=== PATIENT | male | born 1980 ===

== ENCOUNTER 2018-07-01 20:59 | Inpatient (IN) ==
[2018-07-01] MEDS ORDERED: VANCOMYCIN INJ 2,000 MG in SODIUM CHLORIDE 0.9% 250 ML IV STA (21:30)
[2018-07-01] MEDS ORDERED: VANCOMYCIN 1,000 MG VIAL ONE (22:08)
[2018-07-01 23:11] LABS: Basophils # 0.1 10*3/uL (0.0-0.2); Basophils % 0.9 % (0.0-0.8); Eosinophils # 0.1 10*3/uL (0.0-0.87); Eosinophils % 1.5 % (0.00-10.9); Hematocrit 44.6 VOL% (42.0-52.0); Hemoglobin 15.1 GM/DL (14.0-18.0); Immature Granulocytes % 0.5 %; Immature Granulocytes Absolute 0.03 #; Lymphocytes # 2.7 10*3/uL (1.4-4.0); Lymphocytes % 41.3 % (21.2-54.2); Mean Corpuscular HGB Conc 33.9 GM/DL (32-36); Mean Corpuscular Hemoglobin 31 PG (27-34); Mean Platelet Volume 9.6 FL (9.6-12.0); Monocytes # 0.7 10*3/uL (0.11-0.8); Monocytes % 10.5 % (1.7-12.7); Neutrophils % 45.3 % (38.7-73.9); Platelet Count 220 T/CUMM (130-400); Red Blood Count 4.85 MC/CUMM (3.8-5.5); Red Cell Distribution Width 13.7 % (9.3-17.3); White Blood Count 6.6 T/CUMM (4-12)
[2018-07-01 23:20] LABS: PT Patient Result 10.8 SECS
[2018-07-01 23:40] LABS: Apearance,Urine CLEAR (Clear); Bacteria,Urine Occasional /HPF (Few); Bilirubin,Urine Negative (Negative); Blood, Urine Small mg/dL (Negative); Glucose,Urine (UA) >=500 mg/dL (Negative); Hyaline Casts,Urine 1 /LPF (0-3); Ketones,Urine Negative (Negative); Mucus,Urine Occasional /LPF (Occasional); Nitrite,Urine Negative (Negative); Protein,Urine Negative; RBC,Urine 2 /HPF (0-4); Squamous Epithelial Cell,Urine Occasional /HPF (0-10); Urine Color Yellow (Yellow); Urine Specific Gravity 1.002 (1.001-1.035); Urine Urobilinogen < 2.0 EU/DL (0.2-1.0); WBC,Urine <1 /HPF (0-6)
[2018-07-01 23:43] LABS: Albumin 3.4 G/DL (3.4-5.0); Bilirubin,Total 0.4 MG/DL (0.2-1.0); Potassium 3.7 MMOL/L (3.5-5.1); Total Protein 8.2 G/DL (6.4-8.3)
[2018-07-01 23:45] LABS: Barbiturates Screen,Urine Negative (Negative); Benzodiazepines Screen,Urine Negative (Negative); Cannabinoid Screen,Urine Negative (Negative); Opiate Screen,Urine Negative (Negative); Phencyclidine Screen,Urine Negative (Negative)
[2018-07-02 00:14] LABS: Sedimentation Rate-Westergren 32 MM/HR (0-15)
[2018-07-02] MEDS ORDERED: NICOTINE 21 MG/24 HR PATCH TRANSDERM PRN (01:40)
[2018-07-02] MEDS ORDERED: ACETAMINOPHEN 325 MG TABLET PO PRN (01:40)
[2018-07-02] MEDS ORDERED: DEXTROSE 50% 25 GM/50 ML SYRINGE IV PRN (01:40)
[2018-07-02] MEDS ORDERED: GLUCAGON 1 MG VIAL IM PRN (01:40)
[2018-07-02] MEDS ORDERED: ONDANSETRON 4 MG/2 ML VIAL IV PRN (01:40)
[2018-07-02] MEDS ORDERED: VANCOMYCIN 1,000 MG VIAL ONE (03:22)
[2018-07-02] MEDS: MORPHINE 4 MG/1 ML VIAL IV PRN ×2 (05:00→11:52)
[2018-07-02] MEDS: PIPERACILLIN/TAZOBACTAM 3,375 MG in SODIUM CHLORIDE 0.9% 100 ML IV SCH ×3 (05:01→21:50)
[2018-07-02] MEDS: SODIUM CHLORIDE 0.9% 1,000 ML IV SCH ×3 (05:01→18:50)
[2018-07-02] MEDS ORDERED: THIAMINE INJ 100 MG, FOLIC ACID INJ 1 MG, MULTIVITAMIN INJ 10 ML in SODIUM CHLORIDE 0.9... IV ONE (05:30)
[2018-07-02 06:12] LABS: Basophils # 0.1 10*3/uL (0.0-0.2); Basophils % 0.9 % (0.0-0.8); Eosinophils # 0.1 10*3/uL (0.0-0.87); Eosinophils % 2.5 % (0.00-10.9); Hematocrit 43.4 VOL% (42.0-52.0); Hemoglobin 14.6 GM/DL (14.0-18.0); Immature Granulocytes % 0.4 %; Immature Granulocytes Absolute 0.02 #; Lymphocytes # 1.8 10*3/uL (1.4-4.0); Lymphocytes % 32.6 % (21.2-54.2); Mean Corpuscular HGB Conc 33.6 GM/DL (32-36); Mean Corpuscular Hemoglobin 31 PG (27-34); Mean Corpuscular Volume 92.5 FL (87-102); Mean Platelet Volume 9.4 FL (9.6-12.0); Monocytes # 0.6 10*3/uL (0.11-0.8); Monocytes % 11.2 % (1.7-12.7); Neutrophils % 52.4 % (38.7-73.9); Platelet Count 182 T/CUMM (130-400); Red Blood Count 4.69 MC/CUMM (3.8-5.5); Red Cell Distribution Width 13.8 % (9.3-17.3); White Blood Count 5.6 T/CUMM (4-12)
[2018-07-02] MEDS: INSULIN REGULAR 100 UNIT/ML SUBCUT SCH ×3 (07:19→18:20)
[2018-07-02] MEDS: PANTOPRAZOLE 40 MG TABLET PO SCH (09:09)
[2018-07-02] MEDS: VANCOMYCIN INJ 2,000 MG in SODIUM CHLORIDE 0.9% 500 ML IV SCH ×2 (12:32→22:17)
[2018-07-02] MEDS ORDERED: LORazepam 2 MG/1 ML VIAL IV PRN (16:51)
[2018-07-02] MEDS: glyBURIDE 2.5 MG TABLET PO SCH (18:21)
[2018-07-03] MEDS: INSULIN REGULAR 100 UNIT/ML SUBCUT SCH ×3 (00:27→13:24)
[2018-07-03] MEDS: PIPERACILLIN/TAZOBACTAM 3,375 MG in SODIUM CHLORIDE 0.9% 100 ML IV SCH ×2 (05:25→13:43)
[2018-07-03] MEDS: SODIUM CHLORIDE 0.9% 1,000 ML IV SCH ×3 (07:47→10:21)
[2018-07-03] MEDS: glyBURIDE 2.5 MG TABLET PO SCH (08:38)
[2018-07-03] MEDS: PANTOPRAZOLE 40 MG TABLET PO SCH (08:38)
[2018-07-03] MEDS: VANCOMYCIN INJ 2,000 MG in SODIUM CHLORIDE 0.9% 500 ML IV SCH (10:35)
[2018-07-03 12:15] VITALS: BP 198/95
== END 2018-07-03 15:45 | disposition home or self-care (01) | DRG 639 ==
LOC: EDBD → EDUNIT# → N.ED 20:59 → N.EDINP 07-02 01:40 → SUATTDRO 07-02 01:40 → N.5E 07-02 04:02
PROVIDERS: ADMIT Internal Medicine; ATTEND Internal Medicine

== ENCOUNTER 2020-11-12 17:42 | Inpatient (IN) ==
[2020-11-12] MEDS ORDERED: PIPERACILLIN/TAZOBACTAM 3,375 MG in SODIUM CHLORIDE 0.9% 100 ML IV ONE (21:18)
[2020-11-12 21:52] LABS: Blood Urea Nitrogen 27 MG/DL (7-18); Calcium 7.3 MG/DL (8.5-10.1); Carbon Dioxide 24 MMOL/L (21-32); Glucose 373 MG/DL (74-106); Osmolality,Calculated 266.8 MOS/KG (273-304); Potassium 3.6 MMOL/L (3.5-5.1); Sodium 123 MMOL/L (136-145)
[2020-11-12 21:55] LABS: Estimated Glom Filtration Rate 0 ML/MIN
[2020-11-12] MEDS ORDERED: BISACODYL 5 MG TABLET PO PRN (22:21)
[2020-11-12] MEDS ORDERED: DEXTROSE 50% 25 GM/50 ML VIAL IV PRN (22:21)
[2020-11-12] MEDS ORDERED: ONDANSETRON 4 MG/2 ML VIAL IV PRN (22:21)
[2020-11-12] MEDS ORDERED: NICOTINE 21 MG/24 HR PATCH TRANSDERM PRN (22:21)
[2020-11-12] MEDS ORDERED: ZALEPLON 5 MG CAPSULE PO PRN (22:21)
[2020-11-12] MEDS ORDERED: ACETAMINOPHEN 325 MG TABLET PO PRN (22:21)
[2020-11-12] MEDS ORDERED: GLUCAGON 1 MG VIAL IM PRN (22:21)
[2020-11-12] MEDS ORDERED: guaiFENesin/DM ER 600-30 MG TABLET PO PRN (22:21)
[2020-11-12] MEDS ORDERED: SODIUM CHLORIDE 0.9% 2,000 ML IV ONE (22:25)
[2020-11-13 02:23] LABS: Basophils # 0.1 10*3/uL (0.0-0.2); Basophils % 0.4 % (0.0-0.8); Eosinophils # 0.1 10*3/uL (0.0-0.87); Eosinophils % 0.5 % (0.00-10.9); Hematocrit 29.5 VOL% (42.0-52.0); Hemoglobin 9.7 GM/DL (14.0-18.0); Immature Granulocytes % 2.8 %; Immature Granulocytes Absolute 0.47 #; Lymphocytes # 1.5 10*3/uL (1.4-4.0); Mean Corpuscular HGB Conc 32.9 GM/DL (32-36); Mean Corpuscular Volume 95.5 FL (87-102); Mean Platelet Volume 9.6 FL (9.6-12.0); Monocytes % 13.9 % (1.7-12.7); Neutrophils % 73.4 % (38.7-73.9); Platelet Count 288 T/CUMM (130-400); Red Blood Count 3.09 MC/CUMM (3.8-5.5); Red Cell Distribution Width 14.8 % (9.3-17.3)
[2020-11-13 02:34] LABS: INR 1.2; PT Patient Result 13.1 SECS (10.5-12.0); Partial Thromboplastin Time 32.4 SECS (23.9-33.8)
[2020-11-13 02:44] LABS: Albumin 1.1 G/DL (3.4-5.0); Bilirubin,Total 5.3 MG/DL (0.20-1.00); Calcium 7.1 MG/DL (8.5-10.1); Osmolality,Calculated 269.6 MOS/KG (273-304); Potassium 3.5 MMOL/L (3.5-5.1); Total Protein 7.5 G/DL (6.4-8.2)
[2020-11-13] MEDS: SODIUM CHLORIDE 0.9% 1,000 ML IV SCH ×2 (03:01→11:23)
[2020-11-13] MEDS ORDERED: VANCOMYCIN INJ 1,750 MG in SODIUM CHLORIDE 0.9% 500 ML IV SCH (04:00)
[2020-11-13] MEDS ORDERED: MAGNESIUM SULF RIDER 4 GM/100 ML PREMIX IV PRN (07:21)
[2020-11-13] MEDS ORDERED: MAGNESIUM SULF RIDER 2 GM/50 ML PREMIX IV PRN (07:21)
[2020-11-13] MEDS: INSULIN GLARGINE 100 UNIT/ML SUBCUT SCH ×2 (08:35→21:02)
[2020-11-13] MEDS: INSULIN LISPRO 100 UNIT/ML SUBCUT SCH ×4 (08:36→21:02)
[2020-11-13] MEDS: PANTOPRAZOLE 40 MG TABLET PO SCH (08:37)
[2020-11-13] MEDS: PIPERACILLIN/TAZOBACTAM 3,375 MG in SODIUM CHLORIDE 0.9% 100 ML IV SCH ×2 (08:37→16:59)
[2020-11-13] MEDS: HEPARIN 5,000 UNIT/1 ML VIAL SUBCUT SCH ×2 (08:37→21:03)
[2020-11-13 13:05] LABS: Barbiturates Screen,Urine Negative (Negative); Benzodiazepines Screen,Urine Negative (Negative); Cannabinoid Screen,Urine Negative (Negative); Opiate Screen,Urine Positive (Negative); Phencyclidine Screen,Urine Negative (Negative)
[2020-11-13] MEDS: VANCOMYCIN INJ 1,750 MG in SODIUM CHLORIDE 0.9% 500 ML IV SCH (16:59)
[2020-11-14] MEDS: SODIUM CHLORIDE 0.9% 1,000 ML IV SCH ×2 (03:41→21:19)
[2020-11-14] MEDS: PIPERACILLIN/TAZOBACTAM 3,375 MG in SODIUM CHLORIDE 0.9% 100 ML IV SCH ×2 (03:41→09:58)
[2020-11-14] MEDS: MORPHINE 2 MG/1 ML SYRINGE IV PRN ×4 (04:51→22:12)
[2020-11-14] MEDS: VANCOMYCIN INJ 1,750 MG in SODIUM CHLORIDE 0.9% 500 ML IV SCH ×2 (04:52→17:49)
[2020-11-14 06:29] LABS: Basophils # 0.1 10*3/uL (0.0-0.2); Basophils % 0.4 % (0.0-0.8); Eosinophils # 0.1 10*3/uL (0.0-0.87); Eosinophils % 0.7 % (0.00-10.9); Hematocrit 29.3 VOL% (42.0-52.0); Hemoglobin 9.6 GM/DL (14.0-18.0); Immature Granulocytes % 2.1 %; Immature Granulocytes Absolute 0.32 #; Lymphocytes # 1.5 10*3/uL (1.4-4.0); Lymphocytes % 9.8 % (21.2-54.2); Mean Corpuscular HGB Conc 32.8 GM/DL (32-36); Mean Corpuscular Volume 95.8 FL (87-102); Mean Platelet Volume 9.6 FL (9.6-12.0); Monocytes % 12.6 % (1.7-12.7); Neutrophils % 74.4 % (38.7-73.9); Platelet Count 285 T/CUMM (130-400); Red Blood Count 3.06 MC/CUMM (3.8-5.5); Red Cell Distribution Width 15.1 % (9.3-17.3); White Blood Count 15.3 T/CUMM (4-12)
[2020-11-14] MEDS ORDERED: fentaNYL 100 MCG/2 ML VIAL ONE (06:35)
[2020-11-14] MEDS ORDERED: LIDOCAINE 2% 5 ML VIAL ONE (06:35)
[2020-11-14] MEDS ORDERED: MIDAZOLAM 2 MG/2 ML VIAL ONE (06:35)
[2020-11-14] MEDS ORDERED: propofoL 200 MG/20 ML VIAL IV ONE ×2 (06:35→08:07)
[2020-11-14 07:01] LABS: Bilirubin,Total 4.6 MG/DL (0.20-1.00); Calcium 7.2 MG/DL (8.5-10.1); Osmolality,Calculated 269.7 MOS/KG (273-304); Potassium 3.4 MMOL/L (3.5-5.1)
[2020-11-14] MEDS ORDERED: LACTATED RINGERS 1,000 ML IV SCH (07:30)
[2020-11-14] MEDS ORDERED: SUCCINYLCHOLINE 200 MG/10 ML VIAL ONE (07:57)
[2020-11-14] MEDS ORDERED: PHENYLEPHRINE 1 MG/10 ML SYRINGE IV ONE (07:57)
[2020-11-14] MEDS ORDERED: POTASSIUM BICARB EFFERVESCENT 20 MEQ TAB.EFF PO ONE (08:00)
[2020-11-14] MEDS ORDERED: ONDANSETRON 4 MG/2 ML VIAL ONE (08:06)
[2020-11-14] MEDS ORDERED: SEVOFLURANE 1 UNIT/15 MINUTE INH ONE (08:06)
[2020-11-14] MEDS ORDERED: diphenhydrAMINE 50 MG/1 ML VIAL IV PRN (08:34)
[2020-11-14] MEDS ORDERED: MEPERIDINE 25 MG/1 ML VIAL IV PRN (08:34)
[2020-11-14] MEDS ORDERED: ONDANSETRON 4 MG/2 ML VIAL IV PRN (08:34)
[2020-11-14] MEDS ORDERED: HYDROmorphone 2 MG/1 ML VIAL IV PRN (08:34)
[2020-11-14] MEDS ORDERED: PROMETHAZINE INJ 25 MG in SODIUM CHLORIDE 0.9% 50 ML IV PRN (08:34)
[2020-11-14] MEDS: INSULIN LISPRO 100 UNIT/ML SUBCUT SCH ×4 (09:44→22:01)
[2020-11-14] MEDS: PANTOPRAZOLE 40 MG TABLET PO SCH (09:58)
[2020-11-14] MEDS: THIAMINE 100 MG TABLET PO SCH (09:58)
[2020-11-14] MEDS: FOLIC ACID 1 MG TABLET PO SCH (09:58)
[2020-11-14] MEDS: HEPARIN 5,000 UNIT/1 ML VIAL SUBCUT SCH (09:58)
[2020-11-14] MEDS: MULTIVITAMIN (CENTRUM) TABLET PO SCH (09:58)
[2020-11-14] MEDS: INSULIN GLARGINE 100 UNIT/ML SUBCUT SCH ×2 (09:59→21:59)
[2020-11-14] MEDS ORDERED: MORPHINE 2 MG/1 ML SYRINGE IV ONE (11:07)
[2020-11-14] MEDS ORDERED: SILVER NITRATE STICK 1 EACH TOP ONE (11:30)
[2020-11-14 12:27] LABS: Hematocrit 27.6 VOL% (42.0-52.0); Hemoglobin 8.9 GM/DL (14.0-18.0)
[2020-11-14 17:18] LABS: Hematocrit 24.7 VOL% (42.0-52.0)
[2020-11-14] MEDS ORDERED: SODIUM CHLORIDE 0.9% 1,000 ML IV PRN (17:41)
[2020-11-14] MEDS: CEFEPIME 1,000 MG in SODIUM CHLORIDE 0.9% 100 ML IV SCH (21:16)
[2020-11-14 23:36] LABS: Hematocrit 27.1 VOL% (42.0-52.0); Hemoglobin 8.1 GM/DL (14.0-18.0)
[2020-11-15] MEDS: CEFEPIME 1,000 MG in SODIUM CHLORIDE 0.9% 100 ML IV SCH ×4 (02:40→21:06)
[2020-11-15] MEDS: MORPHINE 2 MG/1 ML SYRINGE IV PRN ×5 (02:43→21:08)
[2020-11-15] MEDS: VANCOMYCIN INJ 1,750 MG in SODIUM CHLORIDE 0.9% 500 ML IV SCH ×2 (05:40→17:44)
[2020-11-15 06:19] LABS: Basophils # 0.1 10*3/uL (0.0-0.2); Basophils % 0.9 % (0.0-0.8); Eosinophils # 0.3 10*3/uL (0.0-0.87); Eosinophils % 3.3 % (0.00-10.9); Hematocrit 23.5 VOL% (42.0-52.0); Hemoglobin 7.6 GM/DL (14.0-18.0); Immature Granulocytes % 4.4 %; Immature Granulocytes Absolute 0.42 #; Lymphocytes # 1.7 10*3/uL (1.4-4.0); Lymphocytes % 17.6 % (21.2-54.2); Mean Corpuscular HGB Conc 32.3 GM/DL (32-36); Mean Corpuscular Volume 99.6 FL (87-102); Monocytes % 12.1 % (1.7-12.7); Neutrophils % 61.7 % (38.7-73.9); Platelet Count 266 T/CUMM (130-400); Red Blood Count 2.36 MC/CUMM (3.8-5.5); Red Cell Distribution Width 15.2 % (9.3-17.3); White Blood Count 9.5 T/CUMM (4-12)
[2020-11-15 06:48] LABS: Hypochromasia 1+; Microcytosis 1+; Platelet Estimate Adequate
[2020-11-15 06:58] LABS: Bilirubin,Total 3.3 MG/DL (0.20-1.00); Calcium 7.2 MG/DL (8.5-10.1); Osmolality,Calculated 267.8 MOS/KG (273-304); Potassium 3.4 MMOL/L (3.5-5.1); Total Protein 7.1 G/DL (6.4-8.2)
[2020-11-15] MEDS: INSULIN LISPRO 100 UNIT/ML SUBCUT SCH ×4 (08:19→22:28)
[2020-11-15] MEDS: FOLIC ACID 1 MG TABLET PO SCH (09:12)
[2020-11-15] MEDS: MULTIVITAMIN (CENTRUM) TABLET PO SCH (09:12)
[2020-11-15] MEDS: DOCUSATE SODIUM 100 MG CAPSULE PO SCH ×2 (09:12→21:06)
[2020-11-15] MEDS: POTASSIUM CHLORIDE 20 MEQ TABLET PO PRN ×3 (09:12→14:29)
[2020-11-15] MEDS: INSULIN GLARGINE 100 UNIT/ML SUBCUT SCH ×2 (09:12→22:29)
[2020-11-15] MEDS: THIAMINE 100 MG TABLET PO SCH (09:12)
[2020-11-15] MEDS: PANTOPRAZOLE 40 MG TABLET PO SCH (09:12)
[2020-11-15 09:56] LABS: Hematocrit 24.4 VOL% (42.0-52.0); Hemoglobin 7.7 GM/DL (14.0-18.0)
[2020-11-15] MEDS: SODIUM CHLORIDE 0.9% 1,000 ML IV SCH ×4 (11:28→22:31)
[2020-11-15 14:11] LABS: Hematocrit 23.8 VOL% (42.0-52.0); Hemoglobin 7.5 GM/DL (14.0-18.0)
[2020-11-15 20:02] LABS: Hematocrit 25.4 VOL% (42.0-52.0); Hemoglobin 7.9 GM/DL (14.0-18.0)
[2020-11-16] MEDS: VANCOMYCIN INJ 1,750 MG in SODIUM CHLORIDE 0.9% 500 ML IV SCH ×2 (01:05→17:06)
[2020-11-16] MEDS: CEFEPIME 1,000 MG in SODIUM CHLORIDE 0.9% 100 ML IV SCH ×4 (03:31→21:01)
[2020-11-16] MEDS: MORPHINE 2 MG/1 ML SYRINGE IV PRN ×4 (03:34→21:04)
[2020-11-16 06:03] LABS: Basophils # 0.1 10*3/uL (0.0-0.2); Basophils % 0.9 % (0.0-0.8); Eosinophils # 0.2 10*3/uL (0.0-0.87); Eosinophils % 2.5 % (0.00-10.9); Hematocrit 24.2 VOL% (42.0-52.0); Hemoglobin 7.7 GM/DL (14.0-18.0); Immature Granulocytes % 5.4 %; Immature Granulocytes Absolute 0.46 #; Lymphocytes # 1.5 10*3/uL (1.4-4.0); Lymphocytes % 18.1 % (21.2-54.2); Mean Corpuscular HGB Conc 31.8 GM/DL (32-36); Mean Corpuscular Volume 100.4 FL (87-102); Mean Platelet Volume 9.4 FL (9.6-12.0); Monocytes % 11.1 % (1.7-12.7); Platelet Count 319 T/CUMM (130-400); Red Blood Count 2.41 MC/CUMM (3.8-5.5); Red Cell Distribution Width 15.4 % (9.3-17.3); White Blood Count 8.5 T/CUMM (4-12)
[2020-11-16 06:43] LABS: Bilirubin,Total 2.6 MG/DL (0.20-1.00); Calcium 7.4 MG/DL (8.5-10.1); Osmolality,Calculated 277.8 MOS/KG (273-304); Potassium 4.2 MMOL/L (3.5-5.1); Total Protein 7.6 G/DL (6.4-8.2)
[2020-11-16 06:52] LABS: Band Neutrophils 1 % (0-10); Eosinophils 3 % (0-10); Hypochromasia 1+; Lymphocytes 12 % (20-55); Microcytosis 1+; Nucleated Red Blood Cells 1 (0-5); Platelet Estimate Adequate; Segmented Neutrophils 76 % (50-85); Total Cells Counted 100
[2020-11-16] MEDS: INSULIN LISPRO 100 UNIT/ML SUBCUT SCH ×4 (07:19→23:29)
[2020-11-16] MEDS: DOCUSATE SODIUM 100 MG CAPSULE PO SCH ×2 (08:39→21:01)
[2020-11-16] MEDS: INSULIN GLARGINE 100 UNIT/ML SUBCUT SCH ×2 (08:39→23:29)
[2020-11-16] MEDS: MULTIVITAMIN (CENTRUM) TABLET PO SCH (08:39)
[2020-11-16] MEDS: FOLIC ACID 1 MG TABLET PO SCH (08:39)
[2020-11-16] MEDS: THIAMINE 100 MG TABLET PO SCH (08:39)
[2020-11-16] MEDS: PANTOPRAZOLE 40 MG TABLET PO SCH (08:39)
[2020-11-16] MEDS: SODIUM CHLORIDE 0.9% 1,000 ML IV SCH (12:04)
[2020-11-17] MEDS: MOISTURIZING CREAM (EUCERIN) 106 GM JAR TOP PRN ×2 (01:41→16:11)
[2020-11-17] MEDS: CEFEPIME 1,000 MG in SODIUM CHLORIDE 0.9% 100 ML IV SCH ×4 (02:18→21:20)
[2020-11-17] MEDS: MORPHINE 2 MG/1 ML SYRINGE IV PRN ×2 (05:04→11:31)
[2020-11-17] MEDS: SODIUM CHLORIDE 0.9% 1,000 ML IV SCH ×3 (05:05→17:21)
[2020-11-17 05:46] LABS: Basophils # 0.1 10*3/uL (0.0-0.2); Eosinophils # 0.1 10*3/uL (0.0-0.87); Eosinophils % 1.7 % (0.00-10.9); Hematocrit 25.2 VOL% (42.0-52.0); Hemoglobin 7.7 GM/DL (14.0-18.0); Immature Granulocytes % 5.7 %; Immature Granulocytes Absolute 0.41 #; Lymphocytes # 1.4 10*3/uL (1.4-4.0); Lymphocytes % 19.9 % (21.2-54.2); Mean Corpuscular HGB Conc 30.6 GM/DL (32-36); Mean Corpuscular Volume 102.9 FL (87-102); Mean Platelet Volume 9.1 FL (9.6-12.0); Monocytes % 10.8 % (1.7-12.7); NRBC # 0.03 10*3/uL; Neutrophils % 60.9 % (38.7-73.9); Platelet Count 330 T/CUMM (130-400); Red Blood Count 2.45 MC/CUMM (3.8-5.5); White Blood Count 7.2 T/CUMM (4-12)
[2020-11-17 06:12] LABS: Band Neutrophils 4 % (0-10); Eosinophils 1 % (0-10); Hypochromasia 1+; Lymphocytes 12 % (20-55); Nucleated Red Blood Cells 1 (0-5); Platelet Estimate Normal; Segmented Neutrophils 77 % (50-85); Total Cells Counted 100
[2020-11-17 06:19] LABS: Albumin 1.2 G/DL (3.4-5.0); Bilirubin,Total 2.4 MG/DL (0.20-1.00); Calcium 7.6 MG/DL (8.5-10.1); Osmolality,Calculated 285.4 MOS/KG (273-304); Potassium 4.4 MMOL/L (3.5-5.1)
[2020-11-17] MEDS ORDERED: SEVOFLURANE 1 UNIT/15 MINUTE INH ONE (07:11)
[2020-11-17] MEDS ORDERED: propofoL 200 MG/20 ML VIAL IV ONE (07:11)
[2020-11-17] MEDS ORDERED: ONDANSETRON 4 MG/2 ML VIAL ONE (07:11)
[2020-11-17] MEDS ORDERED: LIDOCAINE 2% 5 ML VIAL ONE (07:11)
[2020-11-17] MEDS ORDERED: MIDAZOLAM 2 MG/2 ML VIAL ONE (07:11)
[2020-11-17] MEDS ORDERED: fentaNYL 100 MCG/2 ML VIAL ONE ×2 (07:11→08:22)
[2020-11-17] MEDS ORDERED: ROCURONIUM 50 MG/5 ML VIAL IV ONE (07:21)
[2020-11-17] MEDS ORDERED: SUCCINYLCHOLINE 200 MG/10 ML VIAL ONE (07:29)
[2020-11-17] MEDS ORDERED: LACTATED RINGERS 1,000 ML IV SCH (08:00)
[2020-11-17] MEDS ORDERED: PHENYLEPHRINE 1 MG/10 ML SYRINGE IV ONE ×2 (08:01→08:54)
[2020-11-17] MEDS ORDERED: HYDROmorphone 2 MG/1 ML VIAL ONE (08:52)
[2020-11-17] MEDS ORDERED: GLYCOPYRROLATE 0.4 MG/2 ML VIAL ONE (09:02)
[2020-11-17] MEDS: HYDROmorphone 2 MG/1 ML VIAL IV PRN ×5 (09:35→21:14)
[2020-11-17] MEDS ORDERED: ONDANSETRON 4 MG/2 ML VIAL IV PRN (09:40)
[2020-11-17] MEDS ORDERED: GLUCAGON 1 MG VIAL IM PRN (10:38)
[2020-11-17] MEDS ORDERED: DEXTROSE 50% 25 GM/50 ML VIAL IV PRN (10:38)
[2020-11-17] MEDS: INSULIN LISPRO 100 UNIT/ML SUBCUT SCH ×4 (11:07→21:12)
[2020-11-17] MEDS: DOCUSATE SODIUM 100 MG CAPSULE PO SCH ×2 (11:31→21:14)
[2020-11-17] MEDS: THIAMINE 100 MG TABLET PO SCH (11:31)
[2020-11-17] MEDS: VANCOMYCIN INJ 1,750 MG in SODIUM CHLORIDE 0.9% 500 ML IV SCH (11:31)
[2020-11-17] MEDS: PANTOPRAZOLE 40 MG TABLET PO SCH (11:31)
[2020-11-17] MEDS: MULTIVITAMIN (CENTRUM) TABLET PO SCH (11:31)
[2020-11-17] MEDS: FOLIC ACID 1 MG TABLET PO SCH (11:31)
[2020-11-17] MEDS: INSULIN GLARGINE 100 UNIT/ML SUBCUT SCH ×2 (11:57→21:12)
[2020-11-17] MEDS ORDERED: ALBUTEROL/IPRATROPIUM 3 ML NEB RESP TX PRN (12:01)
[2020-11-17] MEDS ORDERED: HYDROmorphone 2 MG/1 ML VIAL IV PRN (12:01)
[2020-11-17] MEDS: diphenhydrAMINE CAP 25 MG CAPSULE PO PRN (16:11)
[2020-11-18] MEDS: SODIUM CHLORIDE 0.9% 1,000 ML IV SCH ×2 (00:07→12:42)
[2020-11-18] MEDS: hydrALAZINE 20 MG/1 ML VIAL IV PRN (00:13)
[2020-11-18] MEDS: HYDROmorphone 2 MG/1 ML VIAL IV PRN ×4 (02:11→19:58)
[2020-11-18] MEDS: CEFEPIME 1,000 MG in SODIUM CHLORIDE 0.9% 100 ML IV SCH ×4 (02:12→20:00)
[2020-11-18 06:47] LABS: Basophils # 0.1 10*3/uL (0.0-0.2); Basophils % 0.8 % (0.0-0.8); Eosinophils # 0.1 10*3/uL (0.0-0.87); Eosinophils % 1.1 % (0.00-10.9); Hematocrit 24.6 VOL% (42.0-52.0); Hemoglobin 7.6 GM/DL (14.0-18.0); Immature Granulocytes % 2.7 %; Immature Granulocytes Absolute 0.28 #; Lymphocytes # 1.6 10*3/uL (1.4-4.0); Lymphocytes % 15.1 % (21.2-54.2); Mean Corpuscular HGB Conc 30.9 GM/DL (32-36); Mean Corpuscular Volume 103.8 FL (87-102); Monocytes % 10.5 % (1.7-12.7); NRBC # 0.03 10*3/uL; Neutrophils % 69.8 % (38.7-73.9); Platelet Count 343 T/CUMM (130-400); Red Blood Count 2.37 MC/CUMM (3.8-5.5); Red Cell Distribution Width 16.1 % (9.3-17.3); White Blood Count 10.5 T/CUMM (4-12)
[2020-11-18 07:10] LABS: Calcium 7.4 MG/DL (8.5-10.1); Osmolality,Calculated 262.7 MOS/KG (273-304); Potassium 3.9 MMOL/L (3.5-5.1)
[2020-11-18] MEDS: INSULIN LISPRO 100 UNIT/ML SUBCUT SCH ×4 (07:37→22:10)
[2020-11-18 08:17] LABS: Eosinophils 3 % (0-10); Hypochromasia 1+; Lymphocytes 17 % (20-55); Microcytosis 1+; Platelet Estimate Normal; Segmented Neutrophils 64 % (50-85); Total Cells Counted 100
[2020-11-18] MEDS: DOCUSATE SODIUM 100 MG CAPSULE PO SCH ×2 (09:04→21:45)
[2020-11-18] MEDS: PANTOPRAZOLE 40 MG TABLET PO SCH (09:04)
[2020-11-18] MEDS: INSULIN GLARGINE 100 UNIT/ML SUBCUT SCH ×2 (09:04→21:46)
[2020-11-18] MEDS: FOLIC ACID 1 MG TABLET PO SCH (09:04)
[2020-11-18] MEDS: MULTIVITAMIN (CENTRUM) TABLET PO SCH (09:04)
[2020-11-18] MEDS: THIAMINE 100 MG TABLET PO SCH (09:04)
[2020-11-18] MEDS ORDERED: MAGNESIUM HYDROXIDE SUSP 30 ML UDCUP PO PRN (11:28)
[2020-11-19] MEDS: hydrALAZINE 20 MG/1 ML VIAL IV PRN (00:09)
[2020-11-19] MEDS: HYDROmorphone 2 MG/1 ML VIAL IV PRN ×2 (00:19→22:09)
[2020-11-19] MEDS: CEFEPIME 1,000 MG in SODIUM CHLORIDE 0.9% 100 ML IV SCH ×4 (02:20→22:07)
[2020-11-19] MEDS: INSULIN LISPRO 100 UNIT/ML SUBCUT SCH ×4 (09:42→22:31)
[2020-11-19] MEDS: THIAMINE 100 MG TABLET PO SCH (10:12)
[2020-11-19] MEDS: DOCUSATE SODIUM 100 MG CAPSULE PO SCH ×2 (10:12→22:06)
[2020-11-19] MEDS: FOLIC ACID 1 MG TABLET PO SCH (10:12)
[2020-11-19] MEDS: diphenhydrAMINE CAP 25 MG CAPSULE PO PRN (10:12)
[2020-11-19] MEDS: MULTIVITAMIN (CENTRUM) TABLET PO SCH (10:12)
[2020-11-19] MEDS: INSULIN GLARGINE 100 UNIT/ML SUBCUT SCH ×2 (10:13→22:08)
[2020-11-19] MEDS: PANTOPRAZOLE 40 MG TABLET PO SCH (10:13)
[2020-11-19] MEDS: HEPARIN 5,000 UNIT/1 ML VIAL SUBCUT SCH ×2 (13:22→22:07)
[2020-11-20] MEDS: CEFEPIME 1,000 MG in SODIUM CHLORIDE 0.9% 100 ML IV SCH ×2 (02:50→10:36)
[2020-11-20] MEDS: diphenhydrAMINE CAP 25 MG CAPSULE PO PRN (03:25)
[2020-11-20] MEDS: HYDROmorphone 2 MG/1 ML VIAL IV PRN ×2 (04:26→09:13)
[2020-11-20 06:04] LABS: Basophils # 0.1 10*3/uL (0.0-0.2); Basophils % 0.7 % (0.0-0.8); Eosinophils # 0.2 10*3/uL (0.0-0.87); Eosinophils % 2.7 % (0.00-10.9); Hematocrit 21.6 VOL% (42.0-52.0); Hemoglobin 7.1 GM/DL (14.0-18.0); Immature Granulocytes % 1.9 %; Immature Granulocytes Absolute 0.16 #; Lymphocytes # 1.3 10*3/uL (1.4-4.0); Lymphocytes % 15.2 % (21.2-54.2); Mean Corpuscular HGB Conc 32.9 GM/DL (32-36); Neutrophils % 68.5 % (38.7-73.9); Platelet Count 282 T/CUMM (130-400); Red Blood Count 2.16 MC/CUMM (3.8-5.5); Red Cell Distribution Width 15.9 % (9.3-17.3); White Blood Count 8.5 T/CUMM (4-12)
[2020-11-20 07:59] LABS: % Iron Saturation 24.7 % (18-50)
[2020-11-20 08:06] LABS: Folate 11.99 NG/ML (5.38-24.0)
[2020-11-20] MEDS: FOLIC ACID 1 MG TABLET PO SCH (09:12)
[2020-11-20] MEDS: MULTIVITAMIN (CENTRUM) TABLET PO SCH (09:12)
[2020-11-20] MEDS: HEPARIN 5,000 UNIT/1 ML VIAL SUBCUT SCH (09:12)
[2020-11-20] MEDS: DOCUSATE SODIUM 100 MG CAPSULE PO SCH (09:12)
[2020-11-20] MEDS: PANTOPRAZOLE 40 MG TABLET PO SCH (09:12)
[2020-11-20] MEDS: INSULIN GLARGINE 100 UNIT/ML SUBCUT SCH (09:13)
[2020-11-20] MEDS: THIAMINE 100 MG TABLET PO SCH (09:13)
[2020-11-20] MEDS: INSULIN LISPRO 100 UNIT/ML SUBCUT SCH ×3 (09:13→16:08)
[2020-11-20 12:42] VITALS: BP 135/74
[2020-11-20] MEDS ORDERED: FERROUS SULFATE 325 MG TABLET PO SCH (17:00)
== END 2020-11-20 16:30 | DRG 239 ==
LOC: SUATTDRO 20:42 → N.3E 20:42
PROVIDERS: ADMIT Internal Medicine; ATTEND Internal Medicine

== ENCOUNTER 2020-12-16 05:35 | Inpatient (IN) ==
[2020-12-16] MEDS ORDERED: MEROPENEM 1,000 MG in SODIUM CHLORIDE 0.9% 100 ML IV STA (06:45)
[2020-12-16 07:04] LABS: Basophils # 0.1 10*3/uL (0.0-0.2); Eosinophils # 0.3 10*3/uL (0.0-0.87); Eosinophils % 4.5 % (0.00-10.9); Hematocrit 26.9 VOL% (42.0-52.0); Immature Granulocytes % 0.4 %; Immature Granulocytes Absolute 0.03 #; Lymphocytes # 1.3 10*3/uL (1.4-4.0); Lymphocytes % 19.8 % (21.2-54.2); Mean Corpuscular HGB Conc 33.5 GM/DL (32-36); Mean Corpuscular Volume 92.1 FL (87-102); Mean Platelet Volume 9.3 FL (9.6-12.0); Monocytes % 13.5 % (1.7-12.7); Neutrophils % 60.8 % (38.7-73.9); Platelet Count 265 T/CUMM (130-400); Red Blood Count 2.92 MC/CUMM (3.8-5.5); Red Cell Distribution Width 12.8 % (9.3-17.3); White Blood Count 6.7 T/CUMM (4-12)
[2020-12-16 07:25] LABS: Band Neutrophils 1 % (0-10); Eosinophils 4 % (0-10); Lymphocytes 15 % (20-55); Microcytosis 1+; Platelet Estimate Normal; Segmented Neutrophils 70 % (50-85); Total Cells Counted 100
[2020-12-16 07:27] LABS: Albumin 1.6 G/DL (3.4-5.0); Bilirubin,Total 0.6 MG/DL (0.20-1.00); Osmolality,Calculated 280.5 MOS/KG (273-304); Potassium 3.8 MMOL/L (3.5-5.1); Total Protein 8.3 G/DL (6.4-8.2)
[2020-12-16] MEDS ORDERED: MEROPENEM 1,000 MG VIAL ONE (07:27)
[2020-12-16] MEDS ORDERED: MORPHINE 2 MG/1 ML SYRINGE IV PRN ×2 (08:09→09:46)
[2020-12-16] MEDS ORDERED: ALUMINUM/MAGNES/SIMETH MAX STR 30 ML UDCUP PO PRN (08:09)
[2020-12-16] MEDS ORDERED: LACTULOSE 20 GM/30 ML UDCUP PO PRN (08:09)
[2020-12-16] MEDS ORDERED: DOCUSATE SODIUM 100 MG CAPSULE PO PRN (08:09)
[2020-12-16] MEDS ORDERED: hydrALAZINE 20 MG/1 ML VIAL IV PRN (08:09)
[2020-12-16] MEDS ORDERED: ALBUTEROL 2.5 MG/3 ML NEB RESP TX PRN (08:09)
[2020-12-16] MEDS ORDERED: GLUCAGON 1 MG VIAL IM PRN ×2 (08:09→13:35)
[2020-12-16] MEDS ORDERED: DEXTROSE 50% 25 GM/50 ML VIAL IV PRN ×2 (08:09→13:35)
[2020-12-16] MEDS ORDERED: ACETAMINOPHEN 325 MG TABLET PO PRN (08:09)
[2020-12-16] MEDS ORDERED: ONDANSETRON 4 MG/2 ML VIAL IV PRN (08:09)
[2020-12-16] MEDS: LACTATED RINGERS 1,000 ML IV SCH ×2 (11:25→21:06)
[2020-12-16] MEDS ORDERED: fentaNYL 100 MCG/2 ML VIAL ONE (11:58)
[2020-12-16] MEDS ORDERED: MIDAZOLAM 2 MG/2 ML VIAL ONE (11:58)
[2020-12-16] MEDS ORDERED: ETOMIDATE 40 MG/20 ML VIAL IV ONE (12:25)
[2020-12-16] MEDS ORDERED: propofoL 200 MG/20 ML VIAL IV ONE (12:25)
[2020-12-16] MEDS ORDERED: SEVOFLURANE 1 UNIT/15 MINUTE INH ONE (12:25)
[2020-12-16] MEDS ORDERED: LIDOCAINE 2% 5 ML VIAL ONE (12:25)
[2020-12-16] MEDS ORDERED: ONDANSETRON 4 MG/2 ML VIAL ONE (12:25)
[2020-12-16] MEDS: PANTOPRAZOLE 40 MG TABLET PO SCH (13:37)
[2020-12-16] MEDS: INSULIN LISPRO 100 UNIT/ML SUBCUT SCH ×3 (13:37→22:47)
[2020-12-16] MEDS: MORPHINE 2 MG/1 ML SYRINGE IV PRN ×2 (14:56→21:06)
[2020-12-16] MEDS ORDERED: LEVOFLOXACIN INJ 750 MG/150 ML PREMIX IV SCH (15:00)
[2020-12-16] MEDS ORDERED: MAGNESIUM SULF RIDER 2 GM/50 ML PREMIX IV ONE (16:30)
[2020-12-16] MEDS: FERROUS SULFATE 325 MG TABLET PO SCH (16:41)
[2020-12-16 17:03] LABS: % Iron Saturation 26.3 % (18-50)
[2020-12-16 17:55] LABS: Folate 13.52 NG/ML (5.38-24.0)
[2020-12-16] MEDS ORDERED: INSULIN GLARGINE 100 UNIT/ML SUBCUT SCH (21:00)
[2020-12-16] MEDS ORDERED: ROSUVASTATIN 10 MG TABLET PO SCH (21:00)
[2020-12-17] MEDS: LACTATED RINGERS 1,000 ML IV SCH (04:20)
[2020-12-17 05:05] LABS: Basophils # 0.1 10*3/uL (0.0-0.2); Eosinophils # 0.3 10*3/uL (0.0-0.87); Eosinophils % 3.9 % (0.00-10.9); Hematocrit 26.4 VOL% (42.0-52.0); Hemoglobin 8.7 GM/DL (14.0-18.0); Immature Granulocytes % 0.4 %; Immature Granulocytes Absolute 0.03 #; Lymphocytes # 1.5 10*3/uL (1.4-4.0); Lymphocytes % 20.4 % (21.2-54.2); Mean Corpuscular Volume 92.6 FL (87-102); Mean Platelet Volume 9.1 FL (9.6-12.0); Monocytes % 12.1 % (1.7-12.7); Neutrophils % 62.2 % (38.7-73.9); Platelet Count 270 T/CUMM (130-400); Red Blood Count 2.85 MC/CUMM (3.8-5.5); Red Cell Distribution Width 12.6 % (9.3-17.3); White Blood Count 7.3 T/CUMM (4-12)
[2020-12-17 05:23] LABS: Calcium 7.7 MG/DL (8.5-10.1); Osmolality,Calculated 269.4 MOS/KG (273-304); Potassium 3.7 MMOL/L (3.5-5.1)
[2020-12-17 05:27] LABS: Risk Ratio 3.75; VLDL Cholesterol 21.8 MG/DL
[2020-12-17] MEDS ORDERED: ASPIRIN EC 81 MG TABLET PO SCH (09:00)
[2020-12-17] MEDS ORDERED: amLODIPine 2.5 MG TABLET PO SCH (09:00)
[2020-12-17] MEDS ORDERED: FOLIC ACID 1 MG TABLET PO SCH (09:00)
[2020-12-17] MEDS ORDERED: CETIRIZINE 10 MG TABLET PO SCH (09:00)
[2020-12-17] MEDS: INSULIN LISPRO 100 UNIT/ML SUBCUT SCH ×2 (09:08→12:10)
[2020-12-17] MEDS: FERROUS SULFATE 325 MG TABLET PO SCH ×2 (09:09→12:10)
[2020-12-17] MEDS: PANTOPRAZOLE 40 MG TABLET PO SCH (09:09)
[2020-12-17] MEDS ORDERED: SODIUM HYPOCHLORITE 0.25% IRRIG 473 ML BOTTLE TOP SCH (10:30)
[2020-12-17 11:16] VITALS: BP 129/65
[2020-12-17] MEDS ORDERED: NYSTATIN CREAM 15 GM TUBE TOP SCH (13:00)
[2020-12-17] MEDS ORDERED: NYSTATIN OINT 15 GM TUBE TOP SCH (13:00)
== END 2020-12-17 15:00 | disposition home or self-care (01) | DRG 501 ==
LOC: EDBD → EDUNIT# → N.ED 05:35 → N.EDINP 07:23 → N.3E 11:20
PROVIDERS: ADMIT Internal Medicine; ATTEND Internal Medicine

== ENCOUNTER 2022-05-07 13:35 | Inpatient (IN) ==
[2022-05-07] MEDS ORDERED: SODIUM CHLORIDE 0.9% 1,000 ML IV STA (14:17)
[2022-05-07 14:50] LABS: Basophils # 0.1 10*3/uL (0.0-0.2); Basophils % 0.6 % (0.0-0.8); Eosinophils # 0.1 10*3/uL (0.0-0.87); Eosinophils % 0.9 % (0.00-10.9); Hematocrit 36.1 VOL% (42.0-52.0); Hemoglobin 12.9 GM/DL (14.0-18.0); Immature Granulocytes % 0.4 %; Immature Granulocytes Absolute 0.05 #; Lymphocytes # 1.4 10*3/uL (1.4-4.0); Lymphocytes % 12.3 % (21.2-54.2); Mean Corpuscular HGB Conc 35.7 GM/DL (32-36); Mean Corpuscular Volume 85.7 FL (87-102); Mean Platelet Volume 9.3 FL (9.6-12.0); Monocytes # 1.3 10*3/uL (0.11-0.8); Monocytes % 10.8 % (1.7-12.7); Platelet Count 320 T/CUMM (130-400); Red Blood Count 4.21 MC/CUMM (3.8-5.5); Red Cell Distribution Width 12.7 % (9.3-17.3); White Blood Count 11.59 T/CUMM (4-12)
[2022-05-07 15:00] LABS: PT Patient Result 11.1 SECS (10.1-12.1); Partial Thromboplastin Time 29.2 SECS (23.7-32.9)
[2022-05-07 15:09] LABS: Albumin 1.8 G/DL (3.4-5.0); Calcium 8.6 MG/DL (8.5-10.1); Osmolality,Calculated 279.8 MOS/KG (273-304); Potassium 4.2 MMOL/L (3.5-5.1); Total Protein 8.4 G/DL (6.4-8.2)
[2022-05-07 16:10] LABS: Hyaline Casts,Urine 3 /LPF (0-3); Mucus,Urine Occasional /LPF (Occasional); RBC,Urine 1 /HPF (0-4); Squamous Epithelial Cell,Urine Occasional /HPF (0-10)
[2022-05-07 16:14] LABS: Urine Color Dark yellow (Yellow)
[2022-05-07 16:15] LABS: Bilirubin,Urine Moderate mg/dL (Negative); Blood, Urine Small mg/dL (Negative); Glucose,Urine (UA) 500 mg/dL (Negative); Ketones,Urine Negative (Negative); Nitrite,Urine Negative (Negative); Protein,Urine >=300 mg/dL (Negative); Urine Appearance Clear (Clear); Urine Specific Gravity 1.025 (1.001-1.035); Urine Urobilinogen >= 8.0 eU/dL (<2.0); Urine pH 5.5 (4.5-8.0)
[2022-05-07] MEDS ORDERED: KETOROLAC 30 MG/1 ML VIAL IV STA (16:28)
[2022-05-07] MEDS ORDERED: ONDANSETRON 4 MG/2 ML VIAL IV STA (16:29)
[2022-05-07] MEDS ORDERED: PIPERACILLIN/TAZOBACTAM 3,375 MG in SODIUM CHLORIDE 0.9% 100 ML IV STA (16:31)
[2022-05-07] MEDS ORDERED: CLINDAMYCIN INJ 900 MG/50 ML PREMIX IV STA (16:31)
[2022-05-07] MEDS ORDERED: VANCOMYCIN INJ 1,750 MG in SODIUM CHLORIDE 0.9% 250 ML IV STA (16:31)
[2022-05-07] MEDS ORDERED: PIPERACILLIN/TAZOBACTAM 3,375 MG VIAL IV ONE (17:12)
[2022-05-07] MEDS ORDERED: DOCUSATE SODIUM 100 MG CAPSULE PO PRN (17:22)
[2022-05-07] MEDS ORDERED: ZALEPLON 5 MG CAPSULE PO PRN (17:22)
[2022-05-07] MEDS ORDERED: ACETAMINOPHEN 325 MG TABLET PO PRN (17:22)
[2022-05-07] MEDS ORDERED: GLUCAGON 1 MG VIAL IM PRN (17:22)
[2022-05-07] MEDS ORDERED: ONDANSETRON 4 MG/2 ML VIAL IV PRN (17:22)
[2022-05-07] MEDS ORDERED: BISACODYL 5 MG TABLET PO PRN (17:22)
[2022-05-07] MEDS ORDERED: DEXTROSE 10% 250 ML BAG IV PRN (18:08)
[2022-05-07] MEDS: INSULIN GLARGINE 100 UNIT/ML SUBCUT SCH (21:59)
[2022-05-07] MEDS: INSULIN LISPRO 100 UNIT/ML SUBCUT SCH (22:00)
[2022-05-07] MEDS: ENOXAPARIN 40 MG/0.4 ML SYRINGE SUBCUT SCH (22:00)
[2022-05-08] MEDS: PIPERACILLIN/TAZOBACTAM 3,375 MG in SODIUM CHLORIDE 0.9% 100 ML IV SCH ×3 (00:20→17:03)
[2022-05-08] MEDS: VANCOMYCIN INJ 1,750 MG in SODIUM CHLORIDE 0.9% 500 ML IV SCH ×2 (05:56→17:03)
[2022-05-08 06:06] LABS: Basophils # 0.1 10*3/uL (0.0-0.2); Basophils % 0.8 % (0.0-0.8); Eosinophils # 0.3 10*3/uL (0.0-0.87); Eosinophils % 2.8 % (0.00-10.9); Hematocrit 37.7 VOL% (42.0-52.0); Hemoglobin 13.1 GM/DL (14.0-18.0); Immature Granulocytes % 0.7 %; Immature Granulocytes Absolute 0.06 #; Lymphocytes # 1.4 10*3/uL (1.4-4.0); Lymphocytes % 15.8 % (21.2-54.2); Mean Corpuscular HGB Conc 34.7 GM/DL (32-36); Mean Corpuscular Volume 88.9 FL (87-102); Mean Platelet Volume 9.8 FL (9.6-12.0); Monocytes # 1.1 10*3/uL (0.11-0.8); Neutrophils % 67.9 % (38.7-73.9); Platelet Count 275 T/CUMM (130-400); Red Blood Count 4.24 MC/CUMM (3.8-5.5); White Blood Count 9.13 T/CUMM (4-12)
[2022-05-08 06:15] LABS: Calcium 8.2 MG/DL (8.5-10.1); Osmolality,Calculated 276.4 MOS/KG (273-304)
[2022-05-08 06:25] LABS: Risk Ratio 5.37; VLDL Cholesterol 33.8 MG/DL
[2022-05-08] MEDS: lisinopriL 20 MG TABLET PO SCH (08:36)
[2022-05-08] MEDS: PANTOPRAZOLE 40 MG TABLET PO SCH (08:36)
[2022-05-08] MEDS: ROSUVASTATIN 10 MG TABLET PO SCH (08:36)
[2022-05-08] MEDS: amLODIPine 2.5 MG TABLET PO SCH (08:36)
[2022-05-08] MEDS: ASPIRIN EC 81 MG TABLET PO SCH (08:36)
[2022-05-08] MEDS: INSULIN LISPRO 100 UNIT/ML SUBCUT SCH ×4 (08:37→22:19)
[2022-05-08] MEDS ORDERED: LIDOCAINE 2% 5 ML VIAL ONE (11:02)
[2022-05-08] MEDS ORDERED: fentaNYL 100 MCG/2 ML VIAL ONE (11:02)
[2022-05-08] MEDS ORDERED: MIDAZOLAM 2 MG/2 ML VIAL ONE (11:02)
[2022-05-08] MEDS ORDERED: propofoL 200 MG/20 ML VIAL IV ONE (11:02)
[2022-05-08] MEDS ORDERED: ROPIVACAINE 0.5% 30 ML VIAL ONE (11:13)
[2022-05-08] MEDS ORDERED: ceFAZolin 1,000 MG VIAL ONE (11:18)
[2022-05-08] MEDS ORDERED: KETAMINE 500 MG/10 ML VIAL ONE (11:22)
[2022-05-08] MEDS ORDERED: LACTATED RINGERS 1,000 ML IV ONE (11:36)
[2022-05-08] MEDS ORDERED: HYDROmorphone 1 MG/1 ML SYRINGE IV PRN (11:41)
[2022-05-08] MEDS ORDERED: ONDANSETRON 4 MG/2 ML VIAL IV PRN (11:41)
[2022-05-08] MEDS: MORPHINE 2 MG/1 ML SYRINGE IV PRN (13:03)
[2022-05-08] MEDS: ENOXAPARIN 40 MG/0.4 ML SYRINGE SUBCUT SCH (20:26)
[2022-05-08] MEDS: INSULIN GLARGINE 100 UNIT/ML SUBCUT SCH (22:20)
[2022-05-09] MEDS: PIPERACILLIN/TAZOBACTAM 3,375 MG in SODIUM CHLORIDE 0.9% 100 ML IV SCH ×3 (00:19→17:11)
[2022-05-09 06:13] LABS: Basophils # 0.1 10*3/uL (0.0-0.2); Basophils % 0.6 % (0.0-0.8); Eosinophils # 0.3 10*3/uL (0.0-0.87); Eosinophils % 2.9 % (0.00-10.9); Hematocrit 32.3 VOL% (42.0-52.0); Hemoglobin 11.5 GM/DL (14.0-18.0); Immature Granulocytes % 0.5 %; Immature Granulocytes Absolute 0.04 #; Lymphocytes # 1.4 10*3/uL (1.4-4.0); Lymphocytes % 15.6 % (21.2-54.2); Mean Corpuscular HGB Conc 35.6 GM/DL (32-36); Mean Corpuscular Volume 87.8 FL (87-102); Mean Platelet Volume 9.6 FL (9.6-12.0); Monocytes # 1.1 10*3/uL (0.11-0.8); Monocytes % 12.8 % (1.7-12.7); Neutrophils % 67.6 % (38.7-73.9); Platelet Count 281 T/CUMM (130-400); Red Blood Count 3.68 MC/CUMM (3.8-5.5); Red Cell Distribution Width 12.7 % (9.3-17.3); White Blood Count 8.68 T/CUMM (4-12)
[2022-05-09 06:30] LABS: Calcium 7.5 MG/DL (8.5-10.1); Osmolality,Calculated 274.5 MOS/KG (273-304)
[2022-05-09] MEDS: VANCOMYCIN INJ 1,750 MG in SODIUM CHLORIDE 0.9% 500 ML IV SCH ×2 (06:32→17:11)
[2022-05-09] MEDS: INSULIN LISPRO 100 UNIT/ML SUBCUT SCH ×4 (07:38→21:20)
[2022-05-09] MEDS: MORPHINE 2 MG/1 ML SYRINGE IV PRN ×2 (07:45→13:30)
[2022-05-09] MEDS ORDERED: MOISTURIZING CREAM (EUCERIN) 106 GM JAR TOP PRN (08:27)
[2022-05-09] MEDS: ASPIRIN EC 81 MG TABLET PO SCH (09:14)
[2022-05-09] MEDS: lisinopriL 20 MG TABLET PO SCH (09:15)
[2022-05-09] MEDS: ROSUVASTATIN 10 MG TABLET PO SCH (09:15)
[2022-05-09] MEDS: PANTOPRAZOLE 40 MG TABLET PO SCH (09:15)
[2022-05-09] MEDS: amLODIPine 2.5 MG TABLET PO SCH (09:15)
[2022-05-09] MEDS: INSULIN GLARGINE 100 UNIT/ML SUBCUT SCH ×2 (10:03→21:14)
[2022-05-09] MEDS: ENOXAPARIN 40 MG/0.4 ML SYRINGE SUBCUT SCH (21:14)
[2022-05-10] MEDS: PIPERACILLIN/TAZOBACTAM 3,375 MG in SODIUM CHLORIDE 0.9% 100 ML IV SCH ×2 (02:07→10:15)
[2022-05-10] MEDS ORDERED: VANCOMYCIN INJ 2,000 MG in SODIUM CHLORIDE 0.9% 500 ML IV SCH (04:00)
[2022-05-10 05:57] LABS: Basophils % 0.6 % (0.0-0.8); Eosinophils # 0.3 10*3/uL (0.0-0.87); Eosinophils % 4.3 % (0.00-10.9); Hematocrit 33.7 VOL% (42.0-52.0); Hemoglobin 11.5 GM/DL (14.0-18.0); Immature Granulocytes % 0.6 %; Immature Granulocytes Absolute 0.04 #; Lymphocytes # 1.2 10*3/uL (1.4-4.0); Lymphocytes % 17.9 % (21.2-54.2); Mean Corpuscular HGB Conc 34.1 GM/DL (32-36); Mean Corpuscular Volume 88.9 FL (87-102); Mean Platelet Volume 9.4 FL (9.6-12.0); Monocytes # 0.9 10*3/uL (0.11-0.8); Monocytes % 12.9 % (1.7-12.7); Neutrophils % 63.7 % (38.7-73.9); Platelet Count 269 T/CUMM (130-400); Red Blood Count 3.79 MC/CUMM (3.8-5.5); Red Cell Distribution Width 12.5 % (9.3-17.3); White Blood Count 6.76 T/CUMM (4-12)
[2022-05-10 06:13] LABS: Calcium 7.9 MG/DL (8.5-10.1); Osmolality,Calculated 274.5 MOS/KG (273-304); Potassium 4.2 MMOL/L (3.5-5.1)
[2022-05-10] MEDS: INSULIN GLARGINE 100 UNIT/ML SUBCUT SCH (10:15)
[2022-05-10] MEDS: amLODIPine 2.5 MG TABLET PO SCH (10:15)
[2022-05-10] MEDS: INSULIN LISPRO 100 UNIT/ML SUBCUT SCH ×4 (10:15→21:53)
[2022-05-10] MEDS: PANTOPRAZOLE 40 MG TABLET PO SCH (10:15)
[2022-05-10] MEDS: ROSUVASTATIN 10 MG TABLET PO SCH (10:15)
[2022-05-10] MEDS: ASPIRIN EC 81 MG TABLET PO SCH (10:20)
[2022-05-10] MEDS: lisinopriL 20 MG TABLET PO SCH (10:55)
[2022-05-10] MEDS: MORPHINE 2 MG/1 ML SYRINGE IV PRN ×2 (15:48→22:05)
[2022-05-10] MEDS ORDERED: INSULIN GLARGINE 100 UNIT/ML SUBCUT SCH (21:00)
[2022-05-10] MEDS: ENOXAPARIN 40 MG/0.4 ML SYRINGE SUBCUT SCH (21:53)
[2022-05-11] MEDS: MORPHINE 2 MG/1 ML SYRINGE IV PRN (04:57)
[2022-05-11 05:05] LABS: Basophils % 0.5 % (0.0-0.8); Eosinophils # 0.3 10*3/uL (0.0-0.87); Eosinophils % 5.6 % (0.00-10.9); Hematocrit 32.9 VOL% (42.0-52.0); Hemoglobin 11.2 GM/DL (14.0-18.0); Immature Granulocytes % 0.8 %; Immature Granulocytes Absolute 0.05 #; Lymphocytes # 1.4 10*3/uL (1.4-4.0); Lymphocytes % 22.1 % (21.2-54.2); Mean Corpuscular Volume 88.7 FL (87-102); Mean Platelet Volume 9.4 FL (9.6-12.0); Monocytes # 0.8 10*3/uL (0.11-0.8); Monocytes % 13.4 % (1.7-12.7); Neutrophils % 57.6 % (38.7-73.9); Platelet Count 275 T/CUMM (130-400); Red Blood Count 3.71 MC/CUMM (3.8-5.5); Red Cell Distribution Width 12.6 % (9.3-17.3); White Blood Count 6.11 T/CUMM (4-12)
[2022-05-11 05:28] LABS: Calcium 8.3 MG/DL (8.5-10.1); Osmolality,Calculated 280.7 MOS/KG (273-304); Potassium 3.8 MMOL/L (3.5-5.1)
[2022-05-11] MEDS: amLODIPine 2.5 MG TABLET PO SCH (09:14)
[2022-05-11] MEDS: ASPIRIN EC 81 MG TABLET PO SCH (09:14)
[2022-05-11] MEDS: PANTOPRAZOLE 40 MG TABLET PO SCH (09:14)
[2022-05-11] MEDS: lisinopriL 20 MG TABLET PO SCH (09:14)
[2022-05-11] MEDS: INSULIN LISPRO 100 UNIT/ML SUBCUT SCH ×4 (09:14→11:44)
[2022-05-11] MEDS: INSULIN GLARGINE 100 UNIT/ML SUBCUT SCH (09:17)
[2022-05-11 11:38] VITALS: BP 145/68
== END 2022-05-11 14:31 | disposition home or self-care (01) | DRG 951 ==
LOC: EDBD → EDUNIT# → N.EDINP 13:35 → N.ED 13:35 → SUATTDRO 17:52 → N.EDINP 20:07 → N.2W 20:18 → SUATTDRO 05-09 09:27 → N.3E 05-09 12:44
PROVIDERS: ADMIT Internal Medicine; ATTEND Emergency Medicine